=== PATIENT | female | born 1980 | race Asian ===

== ENCOUNTER 2019-03-09 07:54 | Emergency (ER) | payer SELFPAY ==
[~2019-03-09] VITALS: Ht 154.9 cm; Wt 60.5 kg
[2019-03-09 08:00] VITALS: BP 128/81; PULSE 101; RESP 18; Ht 154.9 cm; Wt 60.5 kg
[2019-03-09] MEDS ORDERED: LIDOCAINE 1% (MPF) 5 ML VIAL INJ ONE (08:30)
[2019-03-09] MEDS ORDERED: CEPH-443 PO (09:14)
[2019-03-09] MEDS ORDERED: NAPR-985 PO (09:14)
--- NOTE | 2019-03-09 09:19 | ERD ---
ER Documentation Chief Complaint Chief Complaint laceration with box estimator top left thumb, pressure dressing in place HPI 38-year-old female presenting with a laceration to her left thumb. Patient was opening a box a box estimator and it slipped. She is right-hand dominant. Her tetanus is up-to-date within the last few years. She denies any numbness or tingling to the affected site. She is able to move her digits without difficulty. Denies other medical problems. NKDA. Surgical history denies. Social history denies ROS All systems reviewed and are negative except as per history of present illness. Medications Home Meds Active Scripts Naproxen* (Naprosyn*) 500 Mg Tablet, 500 MG PO BID PRN for PAIN AND/OR INFLAMMATION, #30 TAB Prov:REBECCA MERCEDES PA-C 03/09/19 Cephalexin* (Keflex*) 500 Mg Capsule, 500 MG PO QID for 7 Days, CAP Prov:REBECCA MERCEDES PA-C 03/09/19 Allergies Allergies: Coded Allergies: No Known Allergy (Unverified , 03/09/19) PMhx/Soc Medical and Surgical Hx: pt denies Medical Hx, pt denies Surgical Hx Hx Alcohol Use: No Hx Substance Use: No Hx Tobacco Use: No FmHx Family History: No diabetes, No coronary disease, No other Physical Exam Vitals Vital Signs Date Temp Pulse Resp B/P (MAP) Pulse Ox O2 O2 Flow FiO2 Time Delivery Rate 03/09/19 98.2 101 18 128/81 99 08:00 (97) Physical Exam GENERAL: The patient is well-appearing, well-nourished, in no acute distress CHEST: Clear to auscultation bilaterally. There are no rales, wheezes or rhonchi. HEART: Regular rate and rhythm. No murmurs, clicks, rubs or gallops. EXTREMITIES: Equal pulses bilaterally. There is no peripheral clubbing, cyanosis or edema. No focal swelling or erythema. Full range of motion. NEUROLOGIC: Alert and oriented. Cranial nerves II through XII intact. Motor strength in all 4 extremities with 5 out of 5 strength. Sensation grossly intact. Normal speech and gait. SKIN: 1 cm linear laceration noted to the left thumb. No tendon or ligament injury. Mild bleeding. No foreign body. Results 24 hrs Current Medications Medications Dose Sig/Erika Start Time Status Last (Trade) Ordered Route PRN Stop Time Admin Dose Reason Admin Lidocaine 5 ml ONCE ONCE 03/09/19 DC (Xylocaine INJ 08:30 1% (Mpf)) 03/09/19 08:31 Procedures/MDM Laceration Repair by me: Anesthesia: 1% lidocaine locally Location: left thumb Tendon/Joint/Nerves: No injury Foreign body: None detected after copious irrigation and exploration Technique: Simple Interrupted Sutures Complexity: No subcutaneous sutures/mucosal repair/edge excision Post Closure Length: 4 cm Patient's bleeding was easily controlled in the department and there is no indication of anemia. No evidence of compartment syndrome, neurologic injury, vascular injury, open joint, tendon laceration, or foreign body. Patient is appropriate for outpatient follow up. 48 hour wound check. Scar minimization instructions given. ER Course: Splint applied in ED. Neuro intact pre-and post splint application. MDM: 38-year-old female presenting with splint to left thumb. Patient had sutures placed. There is a large wound which was dirty due to box estimator so I will treat prophylactically with antibiotics. Patient is discharged with strict ER precautions. Patient is told symptoms change or worsen to return immediately to the ER. All questions answered at discharge Departure Diagnosis: Primary Impression: Laceration Condition: Stable Patient Instructions: Laceration, Hand Referrals: [facility] YOU HAVE RECEIVED A MEDICAL SCREENING EXAM AND THE RESULTS INDICATE THAT YOU DO NOT HAVE A CONDITION THAT REQUIRES URGENT TREATMENT IN THE EMERGENCY DEPARTMENT. FURTHER EVALUATION AND TREATMENT OF YOUR CONDITION CAN WAIT UNTIL YOU ARE SEEN IN YOUR DOCTORS OFFICE WITHIN THE NEXT 1-2 DAYS. IT IS YOUR RESPONSIBILITY TO MAKE AN APPOINTMENT FOR FOLOW-UP CARE. IF YOU HAVE A PRIMARY DOCTOR --you should call your primary doctor and schedule an appointment IF YOU DO NOT HAVE A PRIMARY DOCTOR YOU CAN CALL OUR PHYSICIAN REFERRAL HOTLINE AT IF YOU CAN NOT AFFORD TO SEE A PHYSICIAN YOU CAN CHOSE FROM THE FOLLOWING [facility] [address] [facility] [address] [facility] [address] [facility] [address] [facility]. [facility] [address] [facility] [facility] [address] Additional Instructions: FOLLOW UP WITH YOUR PRIMARY CARE PHYSICIAN TOMORROW.Return to this facility if you are not improving as expected. REBECCA MERCEDES PA-C Mar 09, 2019 09:18
== END 2019-03-09 09:29 | disposition home or self-care (01) ==
LOC: FTE 07:54
DX: S61.012A Laceration without foreign body of left thumb without damage to nail, initial encounter (principal); W26.8XXA Contact with other sharp object(s), not elsewhere classified, initial encounter; Y92.9 Unspecified place or not applicable

== ENCOUNTER 2019-03-11 08:42 | Emergency (ER) | payer SELFPAY ==
[~2019-03-11] VITALS: Ht 157.5 cm; Wt 59.6 kg
[~2019-03-11 08:42] MED LIST: CEPH-443 PO; NAPR-985 PO
[2019-03-11 09:03] VITALS: BP 114/84; PULSE 77; RESP 18; Ht 157.5 cm; Wt 59.6 kg
--- NOTE | 2019-03-11 09:26 | ERD ---
ER Documentation Chief Complaint Chief Complaint Recheck of wound to lt thumb and dressing change HPI Patient is a 38-year-old female presents the ER for concerns of wound recheck to laceration on her left thumb. Patient denies fevers or chills. Patient denies any numbness or tingling. Patient was placed in a splint and states she has developed some stiffness to the affected finger secondary to splint placement. Patient states that she initially thought her tetanus was up-to-date however now she states it is not. ROS All systems reviewed and are negative except as per history of present illness. Medications Home Meds Active Scripts Naproxen* (Naprosyn*) 500 Mg Tablet, 500 MG PO BID PRN for PAIN AND/OR INFLAMMATION, #30 TAB Prov:REBECCA MERCEDES PA-C 03/09/19 Cephalexin* (Keflex*) 500 Mg Capsule, 500 MG PO QID for 7 Days, CAP Prov:REBECCA MERCEDES PA-C 03/09/19 Allergies Allergies: Coded Allergies: No Known Allergy (Unverified , 03/09/19) PMhx/Soc Medical and Surgical Hx: pt denies Medical Hx, pt denies Surgical Hx Hx Alcohol Use: No Hx Substance Use: No Hx Tobacco Use: No Smoking Status: Never smoker FmHx Family History: No diabetes Physical Exam Vitals Vital Signs Date Temp Pulse Resp B/P (MAP) Pulse Ox O2 O2 Flow FiO2 Time Delivery Rate 03/11/19 98.2 77 18 114/84 100 09:03 (94) Physical Exam GENERAL: Well-developed, well-nourished male. Appears in no acute distress. HEAD: Normocephalic, atraumatic. EYES: Pupils are equally reactive bilaterally. EOMs grossly intact. No conjunc tival erythema. EXTREMITIES: Equal pulses bilaterally. No peripheral clubbing, cyanosis or edema. No unilateral leg swelling. NEUROLOGIC: Alert and oriented. Moving all four extremities without any difficulty. Normal speech. Steady gait. SKIN: 6 cm healing linear laceration noted to the dorsal aspect of the left thumb. [address] Decreased range of motion secondary to stiffness likely due to previous splint placement. No wound dehiscence. No surrounding erythema or warmth. No discharge. Surrounding skin appears macerated secondary to constant splint use. Results 24 hrs Current Medications Medications Dose Sig/Erika Start Time Status Last (Trade) Ordered Route PRN Stop Time Admin Dose Reason Admin Diphtheria/ 0.5 ml ONCE ONCE 03/11/19 Tetanus/Acell IM* 09:30 Pertussis 03/11/19 09:31 (Adacel) Procedures/MDM MEDICAL DECISION MAKING: This is a 38-year-old female presents ER for concerns of wound check. Vital signs were reviewed. Patient is afebrile. The wound appears to be healing well with no concerns of acute infection at this time. No wound drainage or wound dehiscence noted. Patient stated that her tetanus is not up-to-date thus it was given today. Post-procedural wound care was discussed with the patient. Suture removal advised in 7 days. Patient advised to keep wound open to allow to dry out. Low suspicion for deep space infection, abscess, cellulitis, neurovascular injury. PRESCRIPTIONS: Continue to take antibiotics as prescribed. Complete full course. DISCHARGE: At this time, the patient is stable for discharge and outpatient management. Post-procedural wound care was discussed with the patient. I have instructed the patient to promptly return to the ER for any new or worsening symptoms including increasing pain, fever, warmth, redness or swelling. The patient and/or family expressed understanding of and agreement with this plan. All questions were answered. Home care instructions were provided. Departure Diagnosis: Primary Impression: Suture check Condition: Fair Patient Instructions: Suture Care Referrals: [facility] YOU HAVE RECEIVED A MEDICAL SCREENING EXAM AND THE RESULTS INDICATE THAT YOU DO NOT HAVE A CONDITION THAT REQUIRES URGENT TREATMENT IN THE EMERGENCY DEPARTMENT. FURTHER EVALUATION AND TREATMENT OF YOUR CONDITION CAN WAIT UNTIL YOU ARE SEEN IN YOUR DOCTORS OFFICE WITHIN THE NEXT 1-2 DAYS. IT IS YOUR RESPONSIBILITY TO MAKE AN APPOINTMENT FOR FOLOW-UP CARE. IF YOU HAVE A PRIMARY DOCTOR --you should call your primary doctor and schedule an appointment IF YOU DO NOT HAVE A PRIMARY DOCTOR YOU CAN CALL OUR PHYSICIAN REFERRAL HOTLINE AT IF YOU CAN NOT AFFORD TO SEE A PHYSICIAN YOU CAN CHOSE FROM THE FOLLOWING [facility] [address] [facility] [address] [place] [address] [facility] [address] [facility] [address] [facility]. [facility]. [address] [facility]. [facility] YOU HAVE RECEIVED A MEDICAL SCREENING EXAM AND THE RESULTS INDICATE THAT YOU DO NOT HAVE A CONDITION THAT REQUIRES URGENT TREATMENT IN THE EMERGENCY DEPARTMENT. FURTHER EVALUATION AND TREATMENT OF YOUR CONDITION CAN WAIT UNTIL YOU ARE SEEN IN YOUR DOCTORS OFFICE WITHIN THE NEXT 1-2 DAYS. IT IS YOUR RESPONSIBILITY TO MAKE AN APPOINTMENT FOR FOLOW-UP CARE. IF YOU HAVE A PRIMARY DOCTOR --you should call your primary doctor and schedule and appointment IF YOU DO NOT HAVE A PRIMARY DOCTOR YOU CAN CALL OUR PHYSICIAN REFERRAL HOTLINE AT . IF YOU CAN NOT AFFORD TO SEE A PHYSICIAN YOU CAN CHOSE FROM THE FOLLOWING [facility] IN[facility]IONS[facility] [address] [place] [address] [facility] [address] [place] [address] [facility] [address] [place] [address] Additional Instructions: Continue taking antibiotics as prescribed. Suture removal advised next Saturday. Return here. NAPOLEON SANTAMARIA PA-C Mar 11, 2019 09:26
[2019-03-11] MEDS ORDERED: DIPHTH/TET/ACEL PERTUSS (ADULT) 0.5 ML VIAL IM* ONE (09:30)
== END 2019-03-11 09:41 | disposition home or self-care (01) ==
LOC: FTE 08:42
DX: Z48.00 Encounter for change or removal of nonsurgical wound dressing (principal); Z23 Encounter for immunization
CPT/HCPCS: 90471; 90715

== ENCOUNTER 2019-03-18 08:41 | Emergency (ER) | payer SELFPAY ==
[~2019-03-18] VITALS: Ht 152.4 cm; Wt 59.2 kg
[2019-03-18 08:49] VITALS: BP 106/67; PULSE 69; RESP 19; Ht 152.4 cm; Wt 59.2 kg
--- NOTE | 2019-03-18 09:54 | ERD ---
ER Documentation Chief Complaint Chief Complaint suture removal HPI 38-year-old male presenting for suture removal on her left thumb. Patient had sutures placed a week ago after she cut herself with a boxing promoter. Patient has had no pain and no bleeding at the site. There is been no pus. Patient is right-hand dominant. Denies other medical problems. NKDA. Surgical history denies. Social history denies ROS All systems reviewed and are negative except as per history of present illness. Medications Home Meds Active Scripts Naproxen* (Naprosyn*) 500 Mg Tablet, 500 MG PO BID PRN for PAIN AND/OR INFLAMMATION, #30 TAB Prov:REBECCA MERCEDES PA-C 03/09/19 Cephalexin* (Keflex*) 500 Mg Capsule, 500 MG PO QID for 7 Days, CAP Prov:REBECCA MERCEDES PA-C 03/09/19 Allergies Allergies: Coded Allergies: No Known Allergy (Unverified , 03/09/19) PMhx/Soc Medical and Surgical Hx: pt denies Medical Hx, pt denies Surgical Hx Hx Alcohol Use: No Hx Substance Use: No Hx Tobacco Use: No Smoking Status: Never smoker FmHx Family History: No diabetes, No coronary disease, No other Physical Exam Vitals Vital Signs Date Temp Pulse Resp B/P (MAP) Pulse Ox O2 O2 Flow FiO2 Time Delivery Rate 03/18/19 98.4 69 19 106/67 99 08:49 (80) Physical Exam GENERAL: The patient is well-appearing, well-nourished, in no acute distress CHEST: Clear to auscultation bilaterally. There are no rales, wheezes or rhonchi. HEART: Regular rate and rhythm. No murmurs, clicks, rubs or gallops. EXTREMITIES: Equal pulses bilaterally. There is no peripheral clubbing, cyanosis or edema. No focal swelling or erythema. Full range of motion. Grossly neurovascularly intact. NEUROLOGIC: Alert and oriented. Cranial nerves II through XII intact. Motor strength in all 4 extremities with 5 out of 5 strength. Sensation grossly intact. SKIN: Left thumb laceration healing appropriately. No dehiscence. No erythema. No purulence. Procedures/MDM ER course: Sutures removed without complication. Band-Aid applied. MDM: 38-year-old female presenting with wound to left thumb. I have low suspicion for tendon or ligament injury as patient has normal range of motion of the thumb. Have low suspicion for wound infection. Patient's exam is non- concerning. Patient is discharged with supportive medications and told to follow-up with primary care within 1 to 2 days for close evaluation. All questions answered at discharge Departure Diagnosis: Primary Impression: Encounter for removal of sutures Condition: Stable Patient Instructions: Suture Removal, No Complication Referrals: [facility] YOU HAVE RECEIVED A MEDICAL SCREENING EXAM AND THE RESULTS INDICATE THAT YOU DO NOT HAVE A CONDITION THAT REQUIRES URGENT TREATMENT IN THE EMERGENCY DEPARTMENT. FURTHER EVALUATION AND TREATMENT OF YOUR CONDITION CAN WAIT UNTIL YOU ARE SEEN IN YOUR DOCTORS OFFICE WITHIN THE NEXT 1-2 DAYS. IT IS YOUR RESPONSIBILITY TO MAKE AN APPOINTMENT FOR FOLOW-UP CARE. IF YOU HAVE A PRIMARY DOCTOR --you should call your primary doctor and schedule an appointment IF YOU DO NOT HAVE A PRIMARY DOCTOR YOU CAN CALL OUR PHYSICIAN REFERRAL HOTLINE AT IF YOU CAN NOT AFFORD TO SEE A PHYSICIAN YOU CAN CHOSE FROM THE FOLLOWING [facility] [address] [facility] [address] [facility] [address] [facility] [address] [facility] [address] [facility] [facility]. [address] Additional Instructions: FOLLOW UP WITH YOUR PRIMARY CARE PHYSICIAN TOMORROW.Return to this facility if you are not improving as expected. REBECCA MERCEDES PA-C Mar 18, 2019 09:54
== END 2019-03-18 09:25 | disposition home or self-care (01) ==
LOC: FTE 08:41
DX: Z48.02 Encounter for removal of sutures (principal)
CPT/HCPCS: 99281